=== PATIENT | female | born 2000 | race Asian ===

== ENCOUNTER 2018-10-03 22:06 | Emergency (ER) | payer BC ==
[2018-10-03 22:20] VITALS: BP 111/75
[2018-10-04] MEDS ORDERED: diPHENhydraMINE PO* 25 MG PO ONE (00:43)
[2018-10-04] MEDS ORDERED: Famotidine TAB* 20 MG PO ONE (00:43)
[2018-10-04] MEDS ORDERED: predniSONE TAB* 20 MG PO ONE (00:43)
--- NOTE | 2018-10-04 02:17 | ED ---
Skin Complaint - HPI Summary HPI Summary: Patient complains of intermittent rashes over the past few days. Denies history of same, denies fever, cough, sore throat, CP, SOB, N/V/D, abdominal pain, change in urine or BM. Rash is pruritic, red, on bilateral upper extremities, chest, back, neck. Patient denies change in lotions, detergents, foods. Housemates do not have similar rash. Medical history is none. - History of Current Complaint Chief Complaint: EDRashSkinAbscess Time Seen by Provider: 10/04/18 00:36 Stated Complaint: RASH Hx Obtained From: Patient Onset/Duration: Started Days Ago Skin Exposure Onset/Duration: Days Ago Timing: Intermittent Onset Severity: Mild Current Severity: Mild Pain Intensity: 0 Pain Scale Used: 0-10 Numeric Skin Location: Neck, Chest, Arm, Abdomen Aggravating Symptom(s): Nothing Alleviating Symptom(s): Nothing Associated Signs & Symptoms: Rash - Allergy/Home Medications Allergies/Adverse Reactions: Allergies Allergy/AdvReac Type Severity Reaction Status Date / Time No Known Allergies Allergy Verified 10/04/18 01:37 PMH/Surg Hx/FS Hx/Imm Hx Endocrine/Hematology History: Denies: Hx Anticoagulant Therapy Cardiovascular History: Denies: Hx Cardiac Arrest History: Denies: Hx Dialysis Neurological History: Denies: Hx CVA Infectious Disease History: No Infectious Disease History: Denies: Traveled Outside the [place] in Last 30 Days - Social History Alcohol Use: Occasionally Substance Use Type: Reports: None Smoking Status (MU): Never Smoked Tobacco Review of Systems Constitutional: Negative Eyes: Negative ENT: Negative Cardiovascular: Negative Respiratory: Negative Gastrointestinal: Negative Genitourinary: Negative Musculoskeletal: Negative Positive: Rash Neurological: Negative Psychological: Normal All Other Systems Reviewed And Are Negative: Yes Physical Exam - Summary Physical Exam Summary: Macular papular rash that in some areas looks like a bug bite, and some areas looks like hives. No oral involvement or swelling. Rash is blanchable. Triage Information Reviewed: Yes Vital Signs On Initial Exam: Initial Vitals Temp Pulse Resp BP Pulse Ox 98.5 F 78 16 111/75 99 10/03/18 22:16 10/03/18 22:16 10/03/18 22:16 10/03/18 22:16 10/03/18 22:16 Vital Signs Reviewed: Yes Appearance: Positive: Well-Appearing Skin: Positive: Warm Head/Face: Positive: Normal Head/Face Inspection Eyes: Positive: Normal ENT: Positive: Normal ENT inspection Neck: Positive: Supple Respiratory/Lung Sounds: Positive: Clear to Auscultation Cardiovascular: Positive: Normal Abdomen Description: Positive: Nontender Musculoskeletal: Positive: Normal Neurological: Positive: Normal Psychiatric: Positive: Normal AVPU Assessment: Alert - Deepak Coma Scale Best Eye Response: 4 - Spontaneous Best Motor Response: 6 - Obeys Commands Best Verbal Response: 5 - Oriented Coma Scale Total: 15 Diagnostics - Vital Signs Vital Signs Temp Pulse Resp BP Pulse Ox 10/03/18 22:16 98.5 F 78 16 111/75 99 - Laboratory Lab Statement: Any lab studies that have been ordered have been reviewed, and results considered in the medical decision making process. Course/Dx - Course Course Of Treatment: Patient complains of intermittent rashes over the past few days. Denies history of same, denies fever, cough, sore throat, CP, SOB, N/V/D , abdominal pain, change in urine or BM. Rash is pruritic, red, on bilateral upper extremities, chest, back, neck. Patient denies change in lotions, detergents, foods. Housemates do not have similar rash. Medical history is none. Physical exam:Macular papular rash that in some areas looks like a bug bite, and some areas looks like hives. No oral involvement or swelling. Rash is blanchable. Vital signs within normal limits. Rash and prednisone as with prednisone and Benadryl, but apparently other areas after administration of medication. Trial of prednisone for 5 days. Local dermatology if symptoms persist - Diagnoses Provider Diagnoses: Rash Discharge - Sign-Out/Discharge Documenting (check all that apply): Patient Departure - Discharge Plan Condition: Stable Disposition: HOME Prescriptions: predniSONE TAB* [Deltasone 20 MG TAB*] 40 mg PO DAILY 5 Days #5 tab Patient Education Materials: Acute Rash (ED) Referrals: No Primary Care Phys,NOPCP [Primary Care Provider] - Gurpreet Fisher MD [Medical Doctor] - Additional Instructions: Take prednisone as directed. Add Benadryl as necessary. If symptoms do not improve follow-up with dermatology Dr. Fisher. Return to the ED for any new or worsening symptoms - Billing Disposition and Condition Condition: STABLE Disposition: Home
== END 2018-10-04 02:26 | disposition home or self-care (01) ==
LOC: ED 22:06
DX: R21 Rash and other nonspecific skin eruption (principal)
CPT/HCPCS: 99282; A9270-GY; J7512

== ENCOUNTER 2019-01-14 17:06 | Emergency (ER) | payer BC ==
[2019-01-14] MEDS ORDERED: EPINEPHRINE 1 MG/ML 1 ML VIAL IM ONE (17:19)
[2019-01-14] MEDS ORDERED: NS 0.9% 1000 ML** 2,000 ML IV ONE (17:19)
[2019-01-14] MEDS ORDERED: methylPREDNISolone 125 MG* 2 ML VIAL IV ONE (17:19)
[2019-01-14] MEDS ORDERED: Famotidine IV * 20 MG in NS 0.9% 100 ML* 100 ML IVPB ONE (17:19)
[2019-01-14] MEDS ORDERED: hydrOXYzine HCL TAB* 50 MG PO ONE (17:20)
--- NOTE | 2019-01-14 17:22 | ED ---
Allergic Reaction/Systemic - HPI Summary HPI Summary: Pt is a 18 y/o F presenting to the ED with a chief complaint of an allergic reaction. She ate half a parfait at around 0930, at 1130, there was a bump on her lip, and now its very swollen. She took a Benadryl, slept for two hours, then woke up and felt like her throat was closing. Pt reports headache, throat constriction, cough, itchy eyes, and difficulty swallowing. Pt denies sob, abd pain, nausea, diarrhea, urinary symptoms, lightheaded, or dizziness. She thinks she used to be allergic to bananas but nothing would happen outside of itching. - History of Current Complaint Chief Complaint: EDAllergicReaction Time Seen by Provider: 01/14/19 17:12 Hx Obtained From: Patient Onset/Duration: Gradual Onset, Started hours ago, Still Present Timing: Constant, Lasting Hours Severity Initially: Mild Severity Currently: Mild Pain Intensity: 0 Pain Scale Used: 0-10 Numeric Location: Discrete @ - upper lip Character: Swelling Aggravating Factor(s): Nothing Alleviating Factor(s): Nothing Associated Signs And Symptoms: Positive: Cough Wheezing - cough, no wheezing, Throat Tightening. Negative: Abdominal Pain, Difficulty Breathing, Lightheadedness, Nausea, Rash, Vomiting - Allergies/Home Medications Allergies/Adverse Reactions: Allergies Allergy/AdvReac Type Severity Reaction Status Date / Time No Known Allergies Allergy Verified 10/04/18 01:37 Home Medications: Home Medications NK [No Home Medications Reported] 01/14/19 [History Confirmed 01/14/19] PMH/Surg Hx/FS Hx/Imm Hx Previously Healthy: Yes Endocrine/Hematology History: Denies: Hx Anticoagulant Therapy, Hx Diabetes Cardiovascular History: Denies: Hx Cardiac Arrest, Hx Hypertension History: Denies: Hx Dialysis Neurological History: Denies: Hx CVA Infectious Disease History: No Infectious Disease History: Denies: Traveled Outside the [place] in Last 30 Days - Family History Known Family History: Negative: Diabetes - Social History Alcohol Use: Occasionally Substance Use Type: Reports: None Smoking Status (MU): Never Smoked Tobacco Review of Systems Negative: Fever Positive: Other - throat tightening Positive: Cough. Negative: Shortness Of Breath Negative: Abdominal Pain, Vomiting, Diarrhea, Nausea Positive: no symptoms reported Positive: Other - swollen upper lip Positive: Headache All Other Systems Reviewed And Are Negative: Yes Physical Exam - Summary Physical Exam Summary: Appearance: Well-appearing, Well-nourished, lying in bed comfortably Skin: Warm, dry, no obvious rash Eyes: sclera anicteric, no conjunctival pallor ENT: mucous membranes moist, pharynx appears normal. Marked edema of the upper lip, but no other edema in the mouth, no pharyngeal edema Neck: Supple, nontender Respiratory: Clear to auscultation, no signs of respiratory distress, no stridor Cardiovascular: Normal S1, S2. No murmurs. Normal distal pulses in tibial and radial bilaterally. Abdomen: Soft, nontender, normal active bowel sounds present Musculoskeletal: Normal, Strength/ROM Intact Neurological: A&Ox3, awake and alert, mentation is normal, speech is fluent and appropriate Psychiatric: affect is normal, does not appear anxious or depressed Triage Information Reviewed: Yes Vital Signs On Initial Exam: Initial Vitals Temp Pulse Resp BP Pulse Ox 98.1 F 87 18 119/88 97 01/14/19 17:09 01/14/19 17:09 01/14/19 17:09 01/14/19 17:09 01/14/19 17:09 Vital Signs Reviewed: Yes Diagnostics - Vital Signs Vital Signs Temp Pulse Resp BP Pulse Ox 01/14/19 17:09 98.1 F 87 18 119/88 97 - Laboratory Result Diagrams: 01/14/19 18:08 01/14/19 18:08 Lab Statement: Any lab studies that have been ordered have been reviewed, and results considered in the medical decision making process. Allergic Reaction Course/Dx - Course Course Of Treatment: Pt is a 18 y/o F presenting to the ED with a chief complaint of an allergic reaction. She ate half a parfait at around 0930, at 1130, there was a bump on her lip, and now its very swollen. She took a Benadryl, slept for two hours, then woke up and felt like her throat was closing. Pt reports headache, throat constriction, cough, itchy eyes, and difficulty swallowing. Pt denies sob, abd pain, nausea, diarrhea, urinary symptoms, lightheaded, or dizziness. Discharge - Sign-Out/Discharge Documenting (check all that apply): Patient Departure Patient Received Moderate/Deep Sedation with Procedure: No - Discharge Plan Condition: Stable Disposition: HOME Referrals: [facility] [Outside] - Attestation Statements Document Initiated by Scribe: Yes Documenting Scribe: Meka Johnson Provider For Whom Luizibserafin is Documenting (Include Credential): Valdez Verma MD. Scribe Attestation: Meka Macedo, scribed for Valdez Verma MD. on 01/14/19 at 1908.
[2019-01-14 18:25] LABS: ABS Basophils 0 10^3/ul (0-0.2); ABS Eosinophils 0 10^3/ul (0-0.6); ABS Lymphocytes 3.1 10^3/ul (1.0-4.8); ABS Monocytes 1.2 10^3/ul (0-0.8); ABS Neutrophils 6.4 10^3/ul (1.5-7.7); ABS Nucleated RBC 0 10^3/ul; Eosinophil % 0.2 %; Hematocrit 37 % (35-47); Hemoglobin 12.3 g/dl (12.0-16.0); Lymphocyte % 29.1 %; Mean Corpuscular HGB Conc 33 g/dl (31-36); Mean Corpuscular Hemoglobin 30 pg (27-31); Mean Corpuscular Volume 90 fL (80-97); Mean Platelet Volume 7.4 fL (7.4-10.4); Nucleated Red Blood Cells % 0; Platelet Count 219 10^3/ul (150-450); Red Blood Count 4.08 10^6/ul (4.00-5.40); Red Cell Distribution Width 14 % (10.5-15); White Blood Count 10.7 10^3/ul (3.5-10.8)
[2019-01-14 18:44] LABS: Albumin 3.8 g/dL (3.2-5.2); Albumin/Globulin Ratio 1.6 (1-3); BUN/Creatinine Ratio 11.1 (8-20); C Reactive Protein 12.55 mg/L (<8.01); Calcium 8.1 mg/dL (8.6-10.3); EGFR Non-African American 103.3 (>60); Globulin 2.4 g/dL (2-4); Total Bilirubin 0.9 mg/dL (0.2-1.0); Total Protein 6.2 g/dL (6.4-8.9)
[2019-01-14 18:48] LABS: Potassium 2.7 mmol/L (3.5-5.0)
[2019-01-14] MEDS ORDERED: Potassium Chlor TAB* 20 MEQ TAB.ER PO ONE (19:08)
[2019-01-14 19:24] VITALS: BP 110/68
[2019-01-15 15:35] LABS: Erythrocyte Sed Rate 10 mm/Hr (0-20)
== END 2019-01-14 19:22 | disposition home or self-care (01) ==
LOC: ED 17:06
DX: T78.3XXA Angioneurotic edema, initial encounter (principal); R05 Cough; R07.0 Pain in throat
CPT/HCPCS: 36415; 80053; 85025; 85652; 86140; 86160; 96372; 96374; 99284; A9270-GY; J2930